=== PATIENT | male | born 1965 | race Caucasian/White ===

== ENCOUNTER 2016-09-13 08:11 | Emergency (ER) | payer OTHER ==
[2016-09-13] MEDS ORDERED: ONDANSETRON HCL/PF 4 MG/ 2ML VIAL ONE (09:05)
[2016-09-13] MEDS ORDERED: 0.9 % SODIUM CHLORIDE 1,000 ML IV ONE ×3 (09:05→09:59)
[2016-09-13] MEDS ORDERED: ONDANSETRON HCL/PF 4 MG/ 2ML VIAL IVP ONE (09:11)
[2016-09-13 09:26] LABS: MEAN CORPUSCULAR HEMOGLOBIN 34.4 pg (28.0-34.0)
[2016-09-13 09:31] LABS: eGFR (African) > 60; eGFR (Non-African) > 60
[2016-09-13 09:59] LABS: MONOCYTES % 8 % (0-11); SEGMENTED NEUTROPHILS % 58 % (39-79)
[2016-09-13] MEDS ORDERED: LORazepam 2 MG/ML VIAL IVP ONE ×2 (12:39→16:20)
[2016-09-13] MEDS ORDERED: THIAMINE HCL 100 MG/ML 2ML VIAL ONE (12:42)
[2016-09-13] MEDS ORDERED: FOLIC ACID 5 MG/1 ML ONE (12:43)
[2016-09-13] MEDS ORDERED: MVI, ADULT NO.1 WITH VIT K 10 ML VIAL IV ONE ×2 (12:43→13:29)
[2016-09-13] MEDS ORDERED: THIAMINE HCL 100 MG, MVI, ADULT NO.1 WITH VIT K 10 ML, FOLIC ACID 5 MG in 0.9 % SODIUM ... IV SCH ×4 (13:00)
--- NOTE | 2016-09-13 13:45 | Diagnostic Imaging Report ---
CATHERINE THORNTON (REBA) - ER [facility] [address] [facility] [address] [place], [place]. [address] Report Submission Date: September 13, 2016 10:59:36 AM CDT Patient Study Name: FRANCISCO OAKLEY Date: September 13, 2016 10:28:00 AM CDT Modality Type: CT\SR Gender: M Description: CT ABD & PELVIS W/ CON : 69 Institution: [facility] Physician: CATHERINE THORNTON) - ER CT abdomen and pelvis with contrast Date of study: 13 Sep 2016 CLINICAL HISTORY: NAUSEA AND VOMITING, LEUKOCYTOSIS. SURGICAL HX: DIAPHRAGM RUPTURE REPAIR AND UMBILICAL HERNIA REPAIR (Hx) / N/V, LEUKOCYTOSIS (DICOM Hx) TECHNIQUE: 5 mm contiguous axial images of the abdomen and pelvis with IV contrast. With ; 89 CC VISIPAQUE FINDINGS: Fatty changes present in the liver. The lung bases are clear. The spleen has been removed. Left kidney is displaced into the splenic fossa. No adrenal masses seen. The left adrenal gland appears atrophic. The pancreas is unremarkable. There are gallstones the left. Dilated small bowel loops are present with bowel resection changes. A supraumbilical hernia contains transverse colon which is collapsed.. Inferior to the previously mentioned hernia is a 2nd with right paramidline hernia containing collapsed small bowel in dilated small bowel entering hernia. There is aortoiliac vascular calcification. Lumbar spondylosis is present. The distal colon is collapsed. Bladder is unremarkable. Small inguinal hernias containing only fat. There is a cyst in the left kidney measuring about a centimeter. Femoral artery calcification is present. There is a hypodensity in the medial left kidney possible infarct IMPRESSION: Small bowel obstruction secondary to the right paramidline strangulated hernia Bowel resection changes in the small bowel near the hernia 2nd more superior hernia contains colon and is not obstructed. This hernia is also right paramidline Cholelithiasis Lumbar spondylosis Fatty liver Splenectomy with displacement of the left kidney into the splenic bed. The radial vascular pedicle is elongated. There is a possible infarct in the upper pole and a cyst in the lateral left kidney Aortoiliac vascular calcification Electronically signed on September 13, 2016 10:59:36 AM CDT by: Crow FAUSTIN
[2016-09-13] MEDS ORDERED: hydrALAZINE HCL 20 MG/1 ML IVP ONE (13:52)
[2016-09-13 17:59] VITALS: BP 150/90
--- NOTE | 2016-09-13 23:35 | ED Physician Documentation ---
Abdominal Pain - HISTORIAN Historian: patient, spouse - HPI Stated Complaint: nausea and vomiting Chief Complaint: Abdominal Pain Onset: hours Duration: constant Timing: worse Context: denies: out of country travel, bad food, recent trauma Severity: severe Quality: pain Associated Symptoms: nausea, vomiting Exacerbated by: food Relieved by: nothing Further Comments: yes (51 year old male patient presents with abdominal pain, nausea and vomiting. Patient reports difficulty with bowels when he eats fatty foods, states he ate greasy foods on Tuesday; reports 48 hours of abd pain, nausea, vomiting. Last BM Tuesday. last vomited at 2300, able to keep down pedialyte and 7-up this morning.) - ROS CONST: no problems GI/: none CVS/RESP: none EYES/ENT: none MS/SKIN/LYMPH: none NEURO/PSYCH: none - SOCIAL HX Smoking History: non-smoker Alcohol Use: heavy - FAMILY HX Family History: denies: none - PAST HX Past History: GERD Other History: diabetes Type 2, hyperlipidemia, hypertension Surgeries/Procedures: other (spleenectomy 1991, SBO and Abdominal hernia repair 2010 x 2 - dehised, healed by secondary intent. ) Home Medications: Ambulatory Orders Medication Instructions Recorded Amlodipine Besylate 5 mg PO DAILY u2 05/22/14 Carvedilol [Coreg] 25 mg PO BID u2 05/22/14 Lisinopril [Zestril] 40 mg PO DAILY u2 05/22/14 Metformin HCl [Glucophage] 1,000 mg PO BID u2 05/22/14 Lovastatin [Altoprev] 20 mg PO HS 09/13/16 Allergies/Adverse Reactions: Allergies Allergy/AdvReac Type Severity Reaction Status Date / Time No Known Drug Allergies Allergy Verified 09/13/16 09:21 - VITAL SIGNS Vital Signs: Vital Signs Temp Pulse Resp BP Pulse Ox 102.2 F H 110 H 20 150/90 95 09/13/16 17:40 09/13/16 17:40 09/13/16 17:40 09/13/16 17:40 09/13/16 17:40 - REVIEWED ASSESSMENTS Nursing Assessment Reviewed: Yes Vitals Reviewed: Yes Progress - Progress Progress: Reviewed CT results with patient and . Recommended surgical evaluation. 1140 Call to [facility] [address] Salter, surgeon at [facility]. Patient accepted for transfer, orders for NGT and banana bag. 1230 Increased anxiety, mild tremors noted. Patient states he has not had a drink in 2 days. Ativan 1mg IV given. 1350 Hydralazine IV given for HTN, patient has been unable to take his po meds for the past 2 days due to nausea and vomiting. Awaiting bed at [facility]; on temporary bed hold. NGT place, minimal yellow drainage. Patient resting quietly, VS stable. 1620 ativan repeated for anxiety. 1700 Bed available. Transfered via EMS ED Results Lab/Radiology - Lab Results Lab Results: Lab Results 09/13/16 09/13/16 09/13/16 09:15 09:15 09:15 WBC 13.40 K/ul H K/ul (4.00-12.00) RBC 5.09 M/ul M/ul (3.90-5.20) Hgb 17.5 g/dL g/dL (12.0-18.0) Hct 48.9 % % (37.0-53.0) MCV 96.0 fl fl (80.0-100.0) MCH 34.4 pg H pg (28.0-34.0) MCHC 35.8 g/dL g/dL (30.0-36.0) RDW 12.3 % % (11.3-14.3) Plt Count 343 K/mm3 K/mm3 (130-400) Seg Neutrophils % 58 % % (39-79) Band Neutrophils % 18 % H % (0-12) Lymphocytes % 16 % % (16-50) Monocytes % 8 % % (0-11) Plt Morphology Comment Normal (NORMAL) RBC Morph Comment Normal (NORMAL) Sodium 134 mmol/L L mmol/L (136-145) Potassium 4.2 mmol/L mmol/L (3.5-5.0) Chloride 102 mmol/L mmol/L (98-110) Carbon Dioxide 27 mmol/L mmol/L (20-32) BUN 34 mg/dL H mg/dL (10-26) Creatinine 1.3 mg/dL mg/dL (0.4-1.5) Estimated Creat Clear 103 Est GFR ( Amer) > 60 (60 - ) Est GFR (Non-Af Amer) > 60 (60 - ) Glucose 224 mg/dL H mg/dL (70-99) Calcium 9.3 mg/dL mg/dL (8.5-10.5) Total Bilirubin 1.3 mg/dL H mg/dL (0.2-1.2) AST 21 U/L U/L (0-41) ALT 35 U/L U/L (0-45) Alkaline Phosphatase 62 U/L U/L (46-116) Total Protein 7.9 g/dL g/dL (6.0-8.5) Albumin 4.3 g/dL g/dL (3.0-5.5) Ethyl Alcohol < 10.0 MG/DL MG/DL (<10.0) - Radiology Radiology Impressions: CT abdomen and pelvis with contrast Date of study: 13 Sep 2016 CLINICAL HISTORY: NAUSEA AND VOMITING, LEUKOCYTOSIS. SURGICAL HX: DIAPHRAGM RUPTURE REPAIR AND UMBILICAL HERNIA REPAIR (Hx) / N/V, LEUKOCYTOSIS (DICOM Hx) TECHNIQUE: 5 mm contiguous axial images of the abdomen and pelvis with IV contrast. With ; 89 CC VISIPAQUE FINDINGS: Fatty changes present in the liver. The lung bases are clear. The spleen has been removed. Left kidney is displaced into the splenic fossa. No adrenal masses seen. The left adrenal gland appears atrophic. The pancreas is unremarkable. There are gallstones the left. Dilated small bowel loops are present with bowel resection changes. A supraumbilical hernia contains transverse colon which is collapsed.. Inferior to the previously mentioned hernia is a 2nd with right paramidline hernia containing collapsed small bowel in dilated small bowel entering hernia. There is aortoiliac vascular calcification. Lumbar spondylosis is present. The distal colon is collapsed. Bladder is unremarkable. Small inguinal hernias containing only fat. There is a cyst in the left kidney measuring about a centimeter. Femoral artery calcification is present. There is a hypodensity in the medial left kidney possible infarct IMPRESSION: Small bowel obstruction secondary to the right paramidline strangulated hernia Bowel resection changes in the small bowel near the hernia 2nd more superior hernia contains colon and is not obstructed. This hernia is also right paramidline Cholelithiasis Lumbar spondylosis Fatty liver Splenectomy with displacement of the left kidney into the splenic bed. The radial vascular pedicle is elongated. There is a possible infarct in the upper pole and a cyst in the lateral left kidney Aortoiliac vascular calcification Electronically signed on September 13, 2016 10:59:36 AM CDT by: Crow Canales - Orders Orders: ED Orders Category Date Time Status Insert NG tube 1T Care 09/13/16 12:[address] Saline Lock/IV NOW Care 09/13/16 08:[address] ABD & PELVIS W/ CON Stat Exams 09/13/16 Completed CBC/PLATELET/DIFF Stat Lab 09/13/16 09:15 Completed CMP Stat Lab 09/13/16 09:15 Completed ETHANOL MEDICAL USE ONLY Routine Lab 09/13/16 09:15 Completed 0.9 % Sodium Chloride [Normal Saline] 1,000 ml Med 09/13/16 09:05 Discontinued IV .STK-MED 0.9 % Sodium Chloride [Normal Saline] 1,000 ml Med 09/13/16 09:10 Discontinued IV NOW 0.9 % Sodium Chloride [Normal Saline] 1,000 ml Med 09/13/16 09:59 Discontinued IV NOW Folic Acid [Folvite] Med 09/13/16 12:43 Discontinued 5 mg .ROUTE .STK-MED ONE LORazepam [Ativan] Med 09/13/16 12:39 Discontinued 1 mg IVP NOW ONE LORazepam [Ativan] Med 09/13/16 16:20 Discontinued 1 mg IVP NOW ONE Mvi, Adult No.1 with Vit K [M.v.i. Adult] Med 09/13/16 12:43 Discontinued 10 ml IV .STK-MED ONE Mvi, Adult No.1 with Vit K [M.v.i. Adult] Med 09/13/16 13:29 Discontinued 10 ml IV .STK-MED ONE Ondansetron HCl/Pf [Zofran 4 mg/2 ml] Med 09/13/16 09:05 Discontinued 4 mg .ROUTE .STK-MED ONE Ondansetron HCl/Pf [Zofran 4 mg/2 ml] Med 09/13/16 09:11 Discontinued 4 mg IVP NOW ONE Thiamine HCl Med 09/13/16 12:42 Discontinued 200 mg .ROUTE .STK-MED ONE Thiamine HCl 100 mg Med 09/13/16 13:00 Discontinued Mvi, Adult No.1 with Vit K [M.v.i. Adult] 10 ml Folic Acid [Folvite] 5 mg 0.9 % Sodium Chloride [Normal Saline] 1,000 ml IV Q8 hydrALAZINE HCL [Apresoline] Med 05/22/17 13:52 Discontinued 10 mg IVP NOW ONE Abdominal Pain Physical Exam - Physical Exam General Appearance: severe distress EENT: eye inspection normal, ENT inspection normal, pharynx normal, no signs of dehydration, VIRI, no nystagmus, TM's nml RESPIRATORY: no resp distress, chest non-tender, breath sounds normal CVS: reg rate & rhythm, heart sounds normal, equal pulses, no murmur, no gallop , PMI nml, no JVD, no friction rub, 24 ABDOMEN: no organomegaly, no abdominal bruit, tenderness (Right lower quad; firm area), abnormal bowel sounds (hypoactive), other (right side abd with large hernia noted. distal area with firmness 5 cm area) SKIN: normal color, warm/dry, NR, INT, PAL, DR EXTREMITIES: non-tender, normal range of motion, no evidence of injury, no edema , J, [employer] NEURO: oriented X3, CN's nml as tested, motor nml, sensation nml Vital Signs: Vital Signs Temp Pulse Resp BP Pulse Ox 102.2 F H 110 H 20 150/90 95 09/13/16 17:40 09/13/16 17:40 09/13/16 17:40 09/13/16 17:40 09/13/16 17:40 Discharge Clincal Impression: SBO (small bowel obstruction), Strangulated umbilical hernia Referrals: Primary Doctor,No [Primary Care Provider] - 2 Days Home Medications: Ambulatory Orders Amlodipine Besylate 5 mg PO DAILY u2 05/22/14 Carvedilol [Coreg] 25 mg PO BID u2 05/22/14 Lisinopril [Zestril] 40 mg PO DAILY u2 05/22/14 Metformin HCl [Glucophage] 1,000 mg PO BID u2 05/22/14 Lovastatin [Altoprev] 20 mg PO HS 09/13/16 Condition: Stable Disposition: 02 XFER SHT-TRM HOSP Decision to Admit: NO Decision Time: 12:30
== END 2016-09-13 17:40 | disposition short-term general hospital (02) ==
LOC: ED 08:11
DX: K42.0 Umbilical hernia with obstruction, without gangrene (principal)
CPT/HCPCS: 74177; 80053; 80320; 85025; J0360; J2060; J2405; J3411; J3490; J7030; 96374; 96375; 96376; 99284; 99285; Q9967; G0480; S1016